=== PATIENT | female | born 1940 | race African-American/Black ===

== ENCOUNTER → 2016-12-22 | Outpatient (CLI) | payer MEDICARE, BC, OTHER ==
[~2016-12-22] MED LIST: ATROVENT HFA12.9 GM INH; CATAPRES0.1 MG PO; CIPRO PO; CLONIDINE HCL0.1 M1 PO; COZAAR100 MG PO; DARVOCET-N 1001 TAB PO; DIABETIC PILL; FIORINAL 50-321 EACH PO; GABAPENTIN300 M2 PO; GLUCOPHAGE500 M1 PO; INDERAL40 MG PO; IRON SUPPLEMENT1 TAB PO; ISOSORBIDE DINI30 MG PO; LASIX PO; MEDROL DOSEPAK4 MG PO; MEDROL PO; MEDROL4 MG/DOSE- PO; MIRALAX17 GM PO; POTASSIUM99 M1 PO; PREDNISONE PO; PRILOSEC40 MG PO; SIMVASTATIN10 MG PO; SYNTHROID PO; SYNTHROID112 MCG PO; TOPAMAX50 MG PO; VALACYCLOVIR500 MG PO; VALTREX PO; VITAMIN B COMP1 EACH PO; VITAMIN B12-FO1 EACH PO; VITAMIN B650 M1 PO; ZOLOFT50 MG PO; [UNRECOGNIZED DRUG - REMARK]
== END | disposition home or self-care (01) ==
LOC: CECH 12:39
DX: R06.00 Dyspnea, unspecified (principal); R60.9 Edema, unspecified; I10 Essential (primary) hypertension; I08.1 Rheumatic disorders of both mitral and tricuspid valves
CPT/HCPCS: 93306

== ENCOUNTER → 2017-05-04 | Outpatient (CLI) | payer MEDICARE, BC, OTHER ==
--- NOTE | ~2017-05-04 | MY29 ---
[facility] A Service of [facility] RADIOLOGY TEXT RESULTS PATIENT: REDDY HARDIN LOCATION: [facility] : 40 UNIT #: [id number] AGE: [address]: Vandana Montiel MD SEX: F ORDER DR: [id number] [facility] [address] [place], [place] [address] [id number] O MR#: [id number] Acc #: [id number] NAME: REDDY HARDIN : 1940 SEX: F STUDY DATE/TIME: 05/04/2017 10:35 UNIT: [facility] ROOM: STUDY DESCRIPTION: MY MANNY SCREENING W/ CAD BILAT Attending Physician: Vandana Montiel M.D. Ordering Physician: Vandana Montiel M.D. Primary Care Physician: Vandana Montiel M.D. MEDICAL IMAGING REPORT This report is preliminary unless electronic signature is present EXAM Bilateral digital screening mammogram with CAD, 05/04/2017. HISTORY No personal or family history of breast cancer. No current complaints. COMPARISON Bilateral screening mammogram 05/14/2016 and 04/28/2015. FINDINGS CC and MLO views were obtained of each breast utilizing digital technique and reviewed with an FDA-approved CAD device. Scattered fibroglandular densities are present bilaterally. There are 2 left and a single right fibronodular densities within each breast that appear unchanged, in keeping with benign findings. No new or developing nodules identified. Benign calcifications within each breast appear stable. No suspicious cluster of microcalcifications. No architectural distortion. IMPRESSION Benign findings. Routine bilateral screening mammogram is recommended in 1 year. Patients over the age of 40 are entered into a reminder system with target due date for the next mammogram. A result letter will also be sent to the patient. BIRADS: 2 Benign finding. Dictated by... Caitie Barragan M.D. [facility] A Service of [facility] RADIOLOGY TEXT RESULTS PATIENT: REDDY HARDIN LOCATION: [facility] : 40 UNIT #: [id number] AGE: [address]: Vandana Montiel MD SEX: F ORDER DR: THIS IS AN ELECTRONICALLY VERIFIED REPORT Caitie Barragan M.D. at 05/06/2017 9:33 PM Oscar TD: 05/04/2017 14:42 JOB #: [id number] MEDICAL IMAGING REPORT Page 1 of 1 COPY
--- NOTE | ~2017-05-04 | BD1 ---
[facility] A Service of [facility] RADIOLOGY TEXT RESULTS PATIENT: REDDY HARDIN LOCATION: [facility] : 40 UNIT #: [id number] AGE: [address]: Vandana Montiel MD SEX: F ORDER DR: [id number] [place] [id number] [facility]. [place], [place] [address] [id number] O MR#: [id number] Acc #: [id number] NAME: REDDY HARDIN : 1940 SEX: F STUDY DATE/TIME: 05/04/2017 10:36 UNIT: [facility] ROOM: STUDY DESCRIPTION: BD Dexa Bone Dens 1+ Site Attending Physician: Vandana Montiel M.D. Ordering Physician: Vandana Montiel M.D. Primary Care Physician: Vandana Montiel M.D. MEDICAL IMAGING REPORT This report is preliminary unless electronic signature is present EXAM DXA scan. 05/04/2017 HISTORY 76-year-old postmenopausal female for osteoporosis screening. On multivitamin with vitamin D supplements. 16-year smoking history. COMPARISON DXA scan 05/05/2015. FINDINGS L1-L4 total bone mineral density is 0.964 gm/cm2 with T-score -1.7 and Z-score 1.0, corresponding to the range of osteopenia. This represents a 7.4% decrease in bone mineral density since 05/05/2015 which is statistically significant. The left femoral neck bone mineral density is 0.886 gm/cm2 with T-score -0.5 and Z-score 1.2, corresponding to normal range. This represents 0.9% increase in bone mineral density since 05/05/2015 which is not statistically significant. IMPRESSION 1. Osteopenia within the lumbar spine. There has been a statistically significant decrease in bone mineral density in the lumbar spine since 05/05/2015. 2. Normal bone mineral density in the left femoral neck, without statistically significant change since 05/05/2015. Dictated by... Caitie Barragan M.D. [facility] A Service of [facility] RADIOLOGY TEXT RESULTS PATIENT: REDDY HARDIN LOCATION: [facility] : 40 UNIT #: [id number] AGE: [address]: Vandana Montiel MD SEX: F ORDER DR: THIS IS AN ELECTRONICALLY VERIFIED REPORT Caitie Barragan M.D. at 05/06/2017 9:34 PM Brendan TD: 05/04/2017 16:07 JOB #: [id number] MEDICAL IMAGING REPORT Page 1 of 1 COPY
== END | disposition home or self-care (01) ==
LOC: CWCC 10:13
DX: Z12.31 Encounter for screening mammogram for malignant neoplasm of breast (principal); Z13.820 Encounter for screening for osteoporosis; Z78.0 Asymptomatic menopausal state
CPT/HCPCS: 77080; G0202